=== PATIENT | female | born 1990 | race Caucasian/White ===

== ENCOUNTER → 2017-01-20 | Outpatient (CLI) | payer OTHER ==
--- NOTE | 2017-01-20 16:06 | US ---
EXAMINATION TYPE: US OB <= 14 wk fetus DATE OF EXAM: 01/20/2017 COMPARISON: NONE CLINICAL HISTORY: Z36 Confirm Dates. EXAM PERFORMED: Transabdominal (TA) EXAM MEASUREMENTS: GESTATIONAL AGE / DATING Physician Established: not established yet Dates by LMP: (12 weeks/6 days) EDC: 07/29/2017 Dates by First Scan: no previous here Dates by Current Scan for: (12 weeks/5 days) EDC: 07/30/2017 MATERNAL ANATOMY Uterus: 15.4 x 6.5 x 10.3 Right Ovary: 3.5 x 2.0 x 2.8cm Left Ovary: 3.1 x 2.9 x 1.7cm Post CDS / Adnexa: wnl Presence of free fluid: none seen GESTATION / SURVEY CRL: 6.3cm (12 weeks/5 days) MSD: wnl Yolk Sac: not seen Heart Rate: 163 bpm Rhythm: Normal IUP: Viable IUP Single live intrauterine gestation is seen as gestational sac and pole are identified. Yolk sac is not clearly seen. No free fluid is seen in pelvic cul-de-sac. Both ovaries are identified. No suspicious extraovarian adnexal masses are seen. IMPRESSION: Single live intrauterine gestation is confirmed, mean crown-rump length is 6.3 cm corresponding to 12 weeks 5 day old fetus.
[2017-01-20 16:28] LABS: CH 30.4; CHCM 34.2; HCT 36.2 % (34.0-46.0); HDW 2.29; HGB 12.6 gm/dL (11.4-16.0); MCH 31.1 pg (25.0-35.0); MCHC 34.8 g/dL (31.0-37.0); MCV 89.3 fL (80.0-100.0); Mean Platelet Volume 7.8; RBC 4.06 m/uL (3.80-5.40); RDW 13.1 % (11.5-15.5); WBC 9.6 k/uL (3.8-10.6)
[2017-01-20 16:33] LABS: Glucose 79 mg/dL (74-99); Non-African American GFR(MDRD) >60 (>60 ml/min/1.73 sqM)
[2017-01-20 17:05] LABS: Hepatitis B Surface Ag Index 0.05
== END | disposition home or self-care (01) ==
LOC: RADUSWWP 15:37
PROVIDERS: ATTEND Obstetrics & Gynecology
DX: Z36 Encounter for antenatal screening of mother (principal); Z3A.12 12 weeks gestation of pregnancy
CPT/HCPCS: 76801; 82565; 82947; 85027; 86762; 86780; 86850; 86900; 86901; 87340

== ENCOUNTER → 2017-02-18 | Outpatient (CLI) | payer OTHER ==
[2017-02-19 09:12] LABS: Alpha Fetoprotein 43.9 ng/mL; Alpha Fetoprotein (M.O.M) 1.09 (Negative); B-HCG (M.O.M.) 1.21; Gestational Age (days) 0; Human Chorionic Gonadotropin 37.3 IU/mL; Inhibin A (M.O.M.) 0.91; Interpretation SeeBelow; Maternal Age at EDD (Yrs) 24; Smoker No; Unconjugated Estriol (M.O.M.) 1.05
== END ==
LOC: LABWHC1 15:46
PROVIDERS: ATTEND Obstetrics & Gynecology
DX: Z34.92 Encounter for supervision of normal pregnancy, unspecified, second trimester (principal); Z3A.00 Weeks of gestation of pregnancy not specified
CPT/HCPCS: 36415; 82105; 82677; 84702; 86336

== ENCOUNTER → 2017-04-16 | Outpatient (CLI) | payer OTHER ==
[2017-04-16 15:55] LABS: CH 32.8; CHCM 33.8; HCT 34.1 % (34.0-46.0); HDW 2.51; HGB 11.3 gm/dL (11.4-16.0); MCH 32.2 pg (25.0-35.0); MCV 97.6 fL (80.0-100.0); Mean Platelet Volume 8.5; RBC 3.49 m/uL (3.80-5.40); RDW 14.1 % (11.5-15.5); WBC 9.9 k/uL (3.8-10.6)
== END | disposition home or self-care (01) ==
LOC: LABWHC1 14:31
PROVIDERS: ATTEND Obstetrics & Gynecology
DX: Z34.82 Encounter for supervision of other normal pregnancy, second trimester (principal); Z3A.00 Weeks of gestation of pregnancy not specified
CPT/HCPCS: 36415; 82950; 85027

== ENCOUNTER → 2017-04-25 | Outpatient (CLI) | payer OTHER ==
[2017-04-25 12:50] LABS: Glucose 3 Hour, Gest 101 mg/dL
== END | disposition home or self-care (01) ==
LOC: LABWHC1 07:56
PROVIDERS: ATTEND Obstetrics & Gynecology
DX: O99.810 Abnormal glucose complicating pregnancy (principal); Z3A.00 Weeks of gestation of pregnancy not specified
CPT/HCPCS: 36415; 82951; 82952

== ENCOUNTER 2017-07-23 06:00 | Inpatient (IN) | payer OTHER ==
--- NOTE | 2017-07-22 12:49 | P.HPOB ---
History of Present Illness H&P Date: 07/22/17 Chief Complaint: Induction of labor This is a 26 y.o. female, 2, para 1, with an estimated date of confinement of 07/29/2016, estimated gestational age of 39-1/7 weeks, presents to L&D for induction of labor. She has been feeling irregular contractions and pressure. Good movement. course has been uncomplicated. labs: Syphilis antibody-neg Random glucose-79 Hepatitis B surface antigen-neg Hemoglobin-12.6 Rubella-immune Blood type-O+ Antibody screen-neg Quad screen-neg 1 hr. GTT-141; 3 hr. GTT-wnl OB US-normal anatomy GBS-neg OB Hx: . Hx 1 vaginal delivery at term. Tub Chucker Hx: Hx GC, Chlamydia treated 2013. Review of Systems Constitutional: Denies chills, Denies fever Eyes: denies blurred vision, denies pain Ears, nose, mouth and throat: Denies headache, Denies sore throat Cardiovascular: Denies chest pain, Denies shortness of breath Respiratory: Denies cough Gastrointestinal: Reports abdominal pain (Irreg. ctxs), Denies diarrhea, Denies nausea, Denies vomiting Genitourinary: Reports pelvic pain, Reports Musculoskeletal: Reports low back pain Neurological: Denies numbness, Denies weakness Psychiatric: Denies anxiety, Denies depression Past Medical History Past Medical History: No Reported History Additional Past Medical History / Comment(s): Denies History of Any Multi-Drug Resistant Organisms: None Reported Past Surgical History: Appendectomy Past Anesthesia/Blood Transfusion Reactions: No Reported Reaction Past Psychological History: No Psychological Hx Reported Smoking Status: Never smoker Past Alcohol Use History: Occasional Past Drug Use History: None Reported - Past Family History Mother Family Medical History: Hypertension Medications and Allergies Home Medications Medication Instructions Recorded Confirmed Type Pnv No.95/Ferrous Fum/Folic AC 1 each PO 07/22/17 History [ Multivitamin Tablet] Allergies Allergy/AdvReac Type Severity Reaction Status Date / Time No Known Allergies Allergy Verified 02/19/16 19:46 Exam Osteopathic Statement: *. No significant issues noted on an osteopathic structural exam other than those noted in the History and Physical/Consult. HEENT: within normal limits Heart: regular rate and rhythm Lungs: clear to auscultation bilaterally Abdomen: soft, Cervix: Cx 2 cm/70%/-1 heart tones: 140's by doppler Extremities: neg. Shar's Assessment and Plan (1) 39 weeks gestation of Status: Acute Code(s): Z3A.39 - 39 WEEKS GESTATION OF SNOMED Code( s): 10508837 Plan: Proceed with oxytocin induction of labor. Expectant management. Epidural if desired.
[2017-07-23] MEDS ORDERED: OXYTOCIN 20 UNITS/1000 ML NS 1,000 ML IV SCH ×2 (06:28→14:40)
[2017-07-23] MEDS ORDERED: LIDOCAINE 1% (PF) 10 MG/ML (30 ML SDV) SQ PRN (06:28)
[2017-07-23] MEDS ORDERED: CARBOPROST TROMETHAMINE 250 MCG/ML 1 ML AMP IM PRN (06:28)
[2017-07-23] MEDS ORDERED: OXYTOCIN 10 UNIT/ML 1 ML VIAL IM PRN (06:28)
[2017-07-23] MEDS ORDERED: TERBUTALINE 1 MG/ML VIAL SQ PRN (06:28)
[2017-07-23] MEDS ORDERED: METHYLERGONOVINE 0.2 MG/ML 1 ML AMP IM PRN (06:28)
[2017-07-23] MEDS ORDERED: LIDOCAINE 1% 20 ML VIAL (10MG/ML) FOR IV START INTRADERMA PRN (06:28)
[2017-07-23 06:43] VITALS: BMI 22.8
[2017-07-23] MEDS: LACTATED RINGERS 1,000 ML IV SCH ×2 (06:49→12:57)
[2017-07-23 06:54] LABS: Basophils % (A) 0 %; Eosinophils # (A) 0.1 k/uL (0-0.7); Eosinophils % (A) 1 %; HCT 36.6 % (34.0-46.0); HGB 11.6 gm/dL (11.4-16.0); Lymphocytes # (A) 1.9 k/uL (1.0-4.8); Lymphocytes % (A) 24 %; MCH 29.9 pg (25.0-35.0); MCHC 31.8 g/dL (31.0-37.0); Mean Platelet Volume 8.6; Monocytes # (A) 0.3 k/uL (0-1.0); Monocytes % (A) 4 %; Neutrophils # (A) 5.4 k/uL (1.3-7.7); Neutrophils % (A) 69 %; Platelet Count 223 k/uL (150-450); RBC 3.89 m/uL (3.80-5.40); RDW 14.7 % (11.5-15.5); WBC 7.8 k/uL (3.8-10.6)
[2017-07-23] MEDS ORDERED: BUTORPHANOL 1 MG/ML 1 ML VIAL IV PRN (10:41)
[2017-07-23] MEDS ORDERED: fentaNYL (PF) 50 MCG/ML 5 ML AMP ONE (12:14)
[2017-07-23] MEDS ORDERED: BUPIVACAINE (PF) 0.25% 30 ML VIAL ONE (12:14)
[2017-07-23] MEDS ORDERED: SODIUM CHLORIDE 0.9% 100 ML BAG ONE (12:14)
[2017-07-23] MEDS ORDERED: BUPIVACAINE (PF) 0.25% 25 ML, fentaNYL (PF) 200 MCG in SODIUM CHLORIDE 0.9% 71 ML EPIDURAL ONE (12:27)
[2017-07-23] MEDS ORDERED: diphenhydrAMINE 25 MG CAP PO PRN (14:40)
[2017-07-23] MEDS ORDERED: WITCH HAZEL 1 EACH MED..PAD TOPICAL PRN (14:40)
[2017-07-23] MEDS ORDERED: HYDROCORTISONE 2.5% RECTAL CREAM 30 GM TUBE RECTAL PRN (14:40)
[2017-07-23] MEDS ORDERED: BENZOCAINE/MENTHOL SPRAY 1 GM/SPRAY AEROSOL TOPICAL PRN (14:40)
[2017-07-23] MEDS ORDERED: SIMETHICONE 80 MG CHEWABLE PO PRN (14:40)
[2017-07-23] MEDS ORDERED: ACETAMINOPHEN TAB 325 MG TAB PO PRN (14:40)
[2017-07-23] MEDS ORDERED: diphenhydrAMINE 50 MG/ML 1 ML VIAL IVP PRN ×2 (14:40)
[2017-07-23] MEDS ORDERED: LANOLIN CREAM 5 GM TUBE TOPICAL PRN (14:40)
[2017-07-23] MEDS ORDERED: diphenhydrAMINE 50 MG CAP PO PRN (14:40)
[2017-07-23] MEDS ORDERED: ZOLPIDEM 5 MG TAB PO PRN (14:40)
[2017-07-23] MEDS ORDERED: IBUPROFEN 600 MG TAB PO PRN (14:40)
--- NOTE | 2017-07-23 17:29 | P.PROBDLV ---
Vaginal Delivery Note - . Vaginal Delivery Note: The patient progressed to complete dilation after oxytocin induction of labor and artificial rupture membranes with clear fluid noted. She did receive epidural anesthesia. After reaching complete dilation she began pushing. Infant's head came to a crown and then delivered across the perineum and a right occiput anterior position. Nose and mouth were bulb suctioned at the perineum and then cord 2 was reduced around the infant's head. With one further push, the infant's body delivered and the was placed on mother's abdomen. Cord was clamped and cut and was taken to warmer for evaluation. A viable female infant was noted with scores of 9 at 1 minute and 9 at 5 minutes and infant weight was noted to be 6 lbs. 7 oz. Placenta delivered shortly thereafter, intact, with a three-vessel cord. Uterus contracted well after oxytocin was given and uterine massage was carried out. Inspection of the perineum revealed no lacerations. She did have a couple small abrasions periurethrally. Estimated blood loss is approximately 100 mL's. Both mother and infant are in stable condition.
[2017-07-23] MEDS ORDERED: DIPH,PERTUS(ACELL)TETVAC-LF 0.5 ML VIAL IM ONE (17:33)
[2017-07-23] MEDS: SENNOSIDES-DOCUSATE SODIUM 1 EACH TAB PO SCH (21:35)
--- NOTE | 2017-07-24 07:37 | P.DS ---
Providers Date of admission: 07/23/17 06:17 Expected date of discharge: 07/24/17 Attending physician: Dorcas Randhawa Primary care physician: Galileo Handy - Discharge Diagnosis(es) (1) 39 weeks gestation of Current Visit: Yes Status: Acute Hospital Course: This is a 26-year-old female 2 para 1 who presented for induction of labor. She underwent oxytocin induction of labor and delivered vaginally a viable female on 07/23/2017. Her course has been uncomplicated. She is breast-feeding. Lochia is decreasing. Pain is well- controlled with ibuprofen. Vital signs are stable. Abdomen is soft with fundus firm and nontender. Extremities show negative Homans. Impression is status post vaginal delivery day #1. Plan is to discharge home today. Routine instructions are given. She will be given a prescription for ibuprofen and a breast pump. She is advised to follow-up in the office in 6 weeks for a check. She is advised to call the office if she has any further questions or concerns prior to her appointment time. Procedures: Oxytocin induction of labor Spontaneous vaginal delivery of a viable female on 07/23/2017 Patient Condition at Discharge: Stable Plan - Discharge Summary New Discharge Prescriptions: No Action Pnv No.95/Ferrous Fum/Folic AC [ Multivitamin Tablet] 1 each PO Discharge Medication List Pnv No.95/Ferrous Fum/Folic AC [ Multivitamin Tablet] 1 each PO [History] Follow up Appointment(s)/Referral(s): Dorcas Randhawa DO [Doctor of Osteopathic Medicine] - 6 Weeks Activity/Diet/Wound Care/Special Instructions: Instructions 1. Do not begin any exercise program for 3 weeks. 2. Do not resume sexual relations for 3 weeks or longer if uncomfortable. 3. You may take tub baths or showers at any time. 4. You may use tampons if desired after 3 weeks. 5. Keep the area of episiotomy (stitches) clean and dry. 6. If you are not nursing, wear a good fitting, supportive bra during the day and limit fluid intake for at least 1 week to prevent breast engorgement. 7. Call the office, [phone], within the next week to make appointment for your 6 week checkup if it has not already been made. 8. Report any of the following occurrences to the doctor promptly: a. Heavy, excessive bleeding b. Chills, fever c. Burning or frequency of urination d. Pain or redness and breasts if nursing e. Increasing pain or swelling in episiotomy (stitches). In addition to the above instructions, the following additional should be followed: 1. No heavy lifting or straining (exercising) until after 6 week checkup. 2. Keep abdominal incision clean and dry: You may wear a dressing if more comfortable. 3. Make office appointment for 10 days after going home or as instructed by her doctor. Discharge Disposition: HOME SELF-CARE
[2017-07-24 08:39] LABS: Basophils % (A) 0 %; Eosinophils # (A) 0.1 k/uL (0-0.7); Eosinophils % (A) 1 %; HCT 33.8 % (34.0-46.0); HGB 11.1 gm/dL (11.4-16.0); Hypochromasia Slight; Lymphocytes # (A) 1.8 k/uL (1.0-4.8); Lymphocytes % (A) 19 %; MCH 30.3 pg (25.0-35.0); MCHC 32.7 g/dL (31.0-37.0); MCV 92.8 fL (80.0-100.0); Mean Platelet Volume 8.6; Monocytes # (A) 0.3 k/uL (0-1.0); Monocytes % (A) 4 %; Neutrophils # (A) 7.2 k/uL (1.3-7.7); Neutrophils % (A) 76 %; Platelet Count 191 k/uL (150-450); RBC 3.65 m/uL (3.80-5.40); RDW 14.1 % (11.5-15.5); WBC 9.5 k/uL (3.8-10.6)
[2017-07-24 15:19] VITALS: BP 112/69; PULSE 55; RESP 18; TEMP 98
[2017-07-24] MEDS: SENNOSIDES-DOCUSATE SODIUM 1 EACH TAB PO SCH (15:20)
== END 2017-07-24 17:24 | disposition home or self-care (01) | DRG 775 ==
LOC: 4FBP 06:17
PROVIDERS: ADMIT Obstetrics & Gynecology; ATTEND Obstetrics & Gynecology
PROC: 10E0XZZ Delivery of Products of Conception, External Approach (ICD-10-PCS; principal; 2017-07-23)
PROC: 3E033VJ Introduction of Other Hormone into Peripheral Vein, Percutaneous Approach (ICD-10-PCS; 2017-07-23)
PROC: 10907ZC Drainage of Amniotic Fluid, Therapeutic from Products of Conception, Via Natural or Artificial Opening (ICD-10-PCS; 2017-07-23)
PROC: 00HU33Z Insertion of Infusion Device into Spinal Canal, Percutaneous Approach (ICD-10-PCS; 2017-07-23)
PROC: 3E0R3BZ Introduction of Anesthetic Agent into Spinal Canal, Percutaneous Approach (ICD-10-PCS; 2017-07-23)
PROC: 3E0234Z Introduction of Serum, Toxoid and Vaccine into Muscle, Percutaneous Approach (ICD-10-PCS; 2017-07-23)
DX: O71.82 Other specified trauma to perineum and vulva (principal); Z23 Encounter for immunization; Z37.0 Single live birth; Z3A.39 39 weeks gestation of pregnancy; Z79.899 Other long term (current) drug therapy
CPT/HCPCS: 85025; 88307; 90471; 90715

== ENCOUNTER 2018-02-21 00:34 | Emergency (ER) | payer OTHER ==
[2018-02-21 00:40] VITALS: TEMP 98.1
[2018-02-21] MEDS ORDERED: AMOXICILLIN 875 MG TAB PO STA (01:10)
[2018-02-21] MEDS ORDERED: KETOROLAC 30 MG/ML 1 ML VIAL IM STA (01:12)
[2018-02-21] MEDS ORDERED: ACET/COD 300 MG/30 MG STARTER PACK 6 TAB BTL PO STA (01:13)
--- NOTE | 2018-02-21 01:14 | ED ---
ENT HPI - General Chief complaint: ENT Stated complaint: Left sided facial pain Time Seen by Provider: 02/21/18 00:55 Source: patient Mode of arrival: ambulatory Limitations: no limitations - History of Present Illness Initial comments: 27-year-old female patient presents to the emergency department today for evaluation of left ear pain. Patient states that throughout the day today she has felt like her left ear has been "plugged". Patient states around 7 PM she started to have pain to the left ear. States that the pain has gradually worsened and is now severe and radiating into her face. She denies any dental pain. Denies any fevers or chills. States that she has had some nasal congestion over the last couple of days. States that she did have any infection last year which resulted in a tympanic perforation. She denies any current drainage from the ear. Denies any recent swimming. Patient denies any recent rash, shortness breath, chest pain, abdominal pain, nausea, vomiting, diarrhea, constipation, back pain, numbness, tingling, hematuria, dysuria, urinary urgency, urinary frequency, headache, visual changes, or any other complaints. - Related Data Previous Rx's Medication Instructions Recorded Amoxicillin 875 mg PO Q12HR #20 tablet 02/21/18 Ibuprofen [Motrin] 600 mg PO Q8HR PRN #30 tab 02/21/18 Allergies Allergy/AdvReac Type Severity Reaction Status Date / Time No Known Allergies Allergy Verified 02/21/18 00:40 Review of Systems ROS Statement: Those systems with pertinent positive or pertinent negative responses have been documented in the HPI. ROS Other: All systems not noted in ROS Statement are negative. Past Medical History Past Medical History: No Reported History Additional Past Medical History / Comment(s): Denies History of Any Multi-Drug Resistant Organisms: None Reported Past Surgical History: Appendectomy Past Anesthesia/Blood Transfusion Reactions: No Reported Reaction Past Psychological History: No Psychological Hx Reported Smoking Status: Never smoker Past Alcohol Use History: Occasional Past Drug Use History: None Reported - Past Family History Mother Family Medical History: Hypertension General Exam Limitations: no limitations General appearance: alert, in no apparent distress, other (This is a well- developed, well-nourished adult female patient in no acute distress. Vital signs upon presentation are temperature 98.1F, pulse 57, respirations 20, blood pressure 156/86, pulse ox 100% on room air.) Eye exam: Present: normal appearance, PERRL, EOMI. Absent: scleral icterus, conjunctival injection, periorbital swelling ENT exam: Present: normal exam, normal oropharynx, mucous membranes moist, normal external ear exam, other (No canal erythema, swelling, or drainage. No mastoid tenderness.). Absent: TM's normal bilaterally ((Tympanic membrane is bulging, erythematous, and dull, appears to be an effusion. ) Neck exam: Present: normal inspection. Absent: tenderness, meningismus, lymphadenopathy Respiratory exam: Present: normal lung sounds bilaterally. Absent: respiratory distress, wheezes, rales, rhonchi, stridor Cardiovascular Exam: Present: regular rate, normal rhythm, normal heart sounds. Absent: systolic murmur, diastolic murmur, rubs, gallop, clicks Neurological exam: Present: alert, oriented X3, CN II-XII intact Psychiatric exam: Present: normal affect, normal mood Skin exam: Present: warm, dry, intact, normal color. Absent: rash Course Vital Signs 02/21/18 00:38 Temperature 98.1 F Pulse Rate 57 L Respiratory 20 Rate Blood Pressure 136/86 O2 Sat by Pulse 100 Oximetry Medical Decision Making - Medical Decision Making 27-year-old female patient presents the emergency department today for complaints of left ear pain. Physical examination did reveal a bulging, erythematous, dull left tympanic membrane. No canal erythema or evidence of otitis externa. We'll treat patient for acute otitis media with amoxicillin. She'll be given ibuprofen for pain control. She is instructed to apply warm compresses. She is instructed to follow-up with her primary care physician for recheck in 1-2 days. Return parameters were discussed in detail. She verbalizes understanding and agrees with this plan. Disposition Clinical Impression: Left otitis media Disposition: HOME SELF-CARE Condition: Good Instructions: Otitis Media (ED), Warm Compress or Soak (ED) Additional Instructions: Complete antibiotic prescription and full. Take medications as directed. Follow-up through primary care physician for recheck in 1-2 days. Return here immediately for any new, worsening, or concerning symptoms. Prescriptions: Amoxicillin 875 mg PO Q12HR #20 tablet Ibuprofen [Motrin] 600 mg PO Q8HR PRN #30 tab PRN Reason: Pain Is patient prescribed a controlled substance at d/c from ED?: No Referrals: Galileo Handy MD [Primary Care Provider] - 1-2 days Time of Disposition: 01:14
[2018-02-21 01:53] VITALS: BP 107/66; PULSE 65; RESP 16
== END 2018-02-21 01:57 | disposition home or self-care (01) ==
LOC: EC 00:34
DX: H66.92 Otitis media, unspecified, left ear (principal); R09.81 Nasal congestion
CPT/HCPCS: 99283; 96372; J1885

== ENCOUNTER 2019-04-19 12:14 | Emergency (ER) | payer OTHER ==
[2019-04-19 12:28] VITALS: TEMP 98.1
[2019-04-19] MEDS ORDERED: SODIUM CHLORIDE 0.9% 1,000 ML IV ONE (12:56)
[2019-04-19 13:43] LABS: Basophils % (A) 0 %; Eosinophils # (A) 0.1 k/uL (0-0.7); Eosinophils % (A) 1 %; HCT 38.9 % (34.0-46.0); HGB 12.9 gm/dL (11.4-16.0); Lymphocytes # (A) 1.5 k/uL (1.0-4.8); Lymphocytes % (A) 18 %; MCHC 33.1 g/dL (31.0-37.0); MCV 93.9 fL (80.0-100.0); Mean Platelet Volume 7.7; Monocytes # (A) 0.4 k/uL (0-1.0); Monocytes % (A) 4 %; Neutrophils % (A) 75 %; Platelet Count 219 k/uL (150-450); RBC 4.15 m/uL (3.80-5.40); RDW 12.6 % (11.5-15.5)
[2019-04-19 13:53] LABS: ALT 11 U/L (9-52); AST 19 U/L (14-36); African American GFR (CKD) >90 (>60 ml/min/1.73 sqM); Albumin 4.6 g/dL (3.5-5.0); Alkaline Phosphatase 40 U/L (38-126); Anion Gap 11 mmol/L; Blood Urea Nitrogen 10 mg/dL (7-17); Calcium 9.3 mg/dL (8.4-10.2); Carbon Dioxide 24 mmol/L (22-30); Chloride 104 mmol/L (98-107); Glucose 81 mg/dL (74-99); Potassium 3.9 mmol/L (3.5-5.1); Sodium 139 mmol/L (137-145); Total Bilirubin 0.4 mg/dL (0.2-1.3); Total Protein 7.7 g/dL (6.3-8.2)
[2019-04-19 14:06] LABS: Appearance,Urine Clear (Clear); Bacteria,Urine Occasional /hpf; Bilirubin,Urine Negative (Negative); Blood,Urine Large (Negative); Color,Urine Light Yellow; Glucose,Urine (UA) Negative (Negative); Ketones,Urine Negative (Negative); Leukocyte Esterase,Urine Negative (Negative); Mucus,Urine Rare /hpf; Nitrite,Urine Negative (Negative); Protein,Urine Negative (Negative); RBC,Urine >182 /hpf (0-5); Specific Gravity,Urine 1.009 (1.001-1.035); Squamous Epithelial Cell,Urine 1 /hpf (0-4); Urobilinogen,Urine <2.0 mg/dL (<2.0); WBC,Urine 1 /hpf (0-5)
--- NOTE | 2019-04-19 14:45 | US ---
EXAMINATION TYPE: Transabdominal DATE OF EXAM: 04/19/2019 2:28 PM COMPARISON: NONE CLINICAL HISTORY: bleeding, 9 wks. Bleeding x 1 day, 3, para 2 EXAM PERFORMED: Transabdominal (TA) EXAM MEASUREMENTS: GESTATIONAL AGE / DATING Physician Established: (9 weeks/4 days) EDC: 11/18/2019 Dates by LMP: (9 weeks/4 days) EDC: 11/18/2019 Dates by First Scan: This is 1st scan Dates by Current Scan for: (9 weeks/4 days) EDC: 11/18/2019 MATERNAL ANATOMY Uterus: 10.4 x 6.9 x 7.8cm, anteverted Right Ovary: 3.1 x 1.2 x 1.5cm Left Ovary: 3.1 x 1.8 x 1.9cm Post CDS / Adnexa: wnl Presence of free fluid: no Presence of corpus luteal cyst: not seen Presence of subchorionic bleed: yes 6.9 x 1.8 x 6.1cm GESTATION / SURVEY CRL: 2.8cm (9 weeks/4 days) Yolk Sac (normal less than 6mm): 4.7mm Heart Rate: 162 bpm Rhythm: Normal IUP: Viable IUP Date of LMP: 02/11/2019 Beta HcG (if available): Not available at time of exam Live single IUP measuring 9 weeks 4 days with a heart rate of 162bpm and an estimated delivery date o f 11/18/2019, 6.9cm subchorionic bleed. IMPRESSION: 1. Single live intrauterine with a calculated sonographic age of 9 weeks and 4 days and est imated date of delivery of 11/18/2019, concordant with menstrual age. Current heart rate of 162 bpm. 2. There appears to be interval development of a large subchorionic hemorrhage that occupies nearly 5 0% of the gestational sac diameter and measures up to 6.9 cm in longitudinal dimension. This appears more hypoechoic than the adjacent myometrium and persists during the examination therefore unlikely t o relate to myometrial contraction. [employer] consultation should be considered given the size.
--- NOTE | 2019-04-19 14:51 | ED ---
General Adult HPI - General Chief complaint: Vaginal Bleeding Stated complaint: 9 WEEKS AND BLEEDING Time Seen by Provider: 04/19/19 12:56 Source: patient, RN notes reviewed Mode of arrival: ambulatory Limitations: no limitations - History of Present Illness Initial comments: 28-year-old female presents to the emergency department for a chief complaint of vaginal bleeding. Patient is a . States the vaginal bleeding started 2 hours ago. Patient is currently 9 weeks . States she follows with Dr. Randhawa but has not yet had an ultrasound. States this is scheduled in 3 days. Admits to mild cramping along with the bleeding. Denies fevers or chills. Patient has no other complaints at this time including shortness of breath, chest pain, nausea or vomiting, headache, or visual changes. - Related Data Home Medications Medication Instructions Recorded Confirmed Pnv,Calcium 72/Iron/Folic Acid 1 tab PO HS 04/19/19 04/19/19 [ Plus Tablet] Allergies Allergy/AdvReac Type Severity Reaction Status Date / Time No Known Allergies Allergy Verified 04/19/19 13:11 Review of Systems ROS Statement: Those systems with pertinent positive or pertinent negative responses have been documented in the HPI. ROS Other: All systems not noted in ROS Statement are negative. Past Medical History Past Medical History: No Reported History Additional Past Medical History / Comment(s): Denies History of Any Multi-Drug Resistant Organisms: None Reported Past Surgical History: Appendectomy Past Anesthesia/Blood Transfusion Reactions: No Reported Reaction Past Psychological History: No Psychological Hx Reported Smoking Status: Never smoker Past Alcohol Use History: Occasional Past Drug Use History: None Reported - Past Family History Mother Family Medical History: Hypertension General Exam Limitations: no limitations General appearance: alert, in no apparent distress Head exam: Present: atraumatic, normocephalic, normal inspection Eye exam: Present: normal appearance, PERRL, EOMI. Absent: scleral icterus, conjunctival injection, periorbital swelling ENT exam: Present: normal exam, mucous membranes moist Neck exam: Present: normal inspection, full ROM. Absent: tenderness, meningismus, lymphadenopathy Respiratory exam: Present: normal lung sounds bilaterally. Absent: respiratory distress, wheezes, rales, rhonchi, stridor Cardiovascular Exam: Present: regular rate, normal rhythm, normal heart sounds. Absent: systolic murmur, diastolic murmur, rubs, gallop, clicks GI/Abdominal exam: Present: soft, normal bowel sounds. Absent: distended, tenderness, guarding, rebound, rigid External exam: Present: normal external exam. Absent: erythema, swelling, lesions, lacerations, ecchymosis Speculum exam: Present: vaginal bleeding (Minimal amount of vaginal bleeding). Absent: normal speculum exam, erythema, vaginal discharge, cervical discharge, foreign body, tissue, laceration By manual exam: Present: normal by manual exam. Absent: cervical motion tenderness, adnexal tenderness, adnexal mass, uterine enlargement, uterine tenderness Course Vital Signs 04/19/19 12:25 Temperature 98.1 F Pulse Rate 84 Respiratory 20 Rate Blood Pressure 136/70 O2 Sat by Pulse 99 Oximetry Medical Decision Making - Medical Decision Making Vitals are stable. Exam revealed minimal bleeding, no overt hemorrhage. CBC was obtained to monitor hemoglobin which is normal at 12.9. CMP unremarkable. Urinalysis does show greater than 182 red blood cells. ultrasound showed a single live intrauterine with a current heart rate of 162. There is a large subchorionic hemorrhage which occupies nearly 50% of the gestational sac. Dr. Jo spoke with on-call physician for Dr. Randhawa. They are aware of this. Patient will follow up with them at her scheduled appointment on . She'll return if she has any worsening symptoms. - Lab Data Result diagrams: 04/19/19 13:25 04/19/19 13:25 Lab Results 04/19/19 04/19/19 04/19/19 Range/Units 13:25 13:25 13:25 WBC 8.0 (3.8-10.6) k/uL RBC 4.15 (3.80-5.40) m/uL Hgb 12.9 (11.4-16.0) gm/dL Hct 38.9 (34.0-46.0) % MCV 93.9 (80.0-100.0) fL MCH 31.0 (25.0-35.0) pg MCHC 33.1 (31.0-37.0) g/dL RDW 12.6 (11.5-15.5) % Plt Count 219 (150-450) k/uL Neutrophils % 75 % Lymphocytes % 18 % Monocytes % 4 % Eosinophils % 1 % Basophils % 0 % Neutrophils # 6.0 (1.3-7.7) k/uL Lymphocytes # 1.5 (1.0-4.8) k/uL Monocytes # 0.4 (0-1.0) k/uL Eosinophils # 0.1 (0-0.7) k/uL Basophils # 0.0 (0-0.2) k/uL Sodium 139 (137-145) mmol/L Potassium 3.9 (3.5-5.1) mmol/L Chloride 104 (98-107) mmol/L Carbon Dioxide 24 (22-30) mmol/L Anion Gap 11 mmol/L BUN 10 (7-17) mg/dL Creatinine 0.58 (0.52-1.04) mg/dL Est GFR (CKD-EPI)AfAm >90 (>60 ml/min/1.73 sqM) Est GFR (CKD-EPI)NonAf >90 (>60 ml/min/1.73 sqM) Glucose 81 (74-99) mg/dL Calcium 9.3 (8.4-10.2) mg/dL Total Bilirubin 0.4 (0.2-1.3) mg/dL AST 19 (14-36) U/L ALT 11 (9-52) U/L Alkaline Phosphatase 40 (38-126) U/L Total Protein 7.7 (6.3-8.2) g/dL Albumin 4.6 (3.5-5.0) g/dL Urine Color Urine Appearance (Clear) Urine pH (5.0-8.0) Ur Specific [place] (1.001-1.035) Urine Protein (Negative) Urine Glucose (UA) (Negative) Urine Ketones (Negative) Urine Blood (Negative) Urine Nitrite (Negative) Urine Bilirubin (Negative) Urine Urobilinogen (<2.0) mg/dL Ur Leukocyte Esterase (Negative) Urine RBC (0-5) /hpf Urine WBC (0-5) /hpf Ur Squamous Epith Cells (0-4) /hpf Urine Bacteria (None) /hpf Urine Mucus (None) /hpf Blood Type O Positive Blood Type Recheck O Pos Bld Type Recheck Status No 04/19/19 Range/Units 13:25 WBC (3.8-10.6) k/uL RBC (3.80-5.40) m/uL Hgb (11.4-16.0) gm/dL Hct (34.0-46.0) % MCV (80.0-100.0) fL MCH (25.0-35.0) pg MCHC (31.0-37.0) g/dL RDW (11.5-15.5) % Plt Count (150-450) k/uL Neutrophils % % Lymphocytes % % Monocytes % % Eosinophils % % Basophils % % Neutrophils # (1.3-7.7) k/uL Lymphocytes # (1.0-4.8) k/uL Monocytes # (0-1.0) k/uL Eosinophils # (0-0.7) k/uL Basophils # (0-0.2) k/uL Sodium (137-145) mmol/L Potassium (3.5-5.1) mmol/L Chloride (98-107) mmol/L Carbon Dioxide (22-30) mmol/L Anion Gap mmol/L BUN (7-17) mg/dL Creatinine (0.52-1.04) mg/dL Est GFR (CKD-EPI)AfAm (>60 ml/min/1.73 sqM) Est GFR (CKD-EPI)NonAf (>60 ml/min/1.73 sqM) Glucose (74-99) mg/dL Calcium (8.4-10.2) mg/dL Total Bilirubin (0.2-1.3) mg/dL AST (14-36) U/L ALT (9-52) U/L Alkaline Phosphatase (38-126) U/L Total Protein (6.3-8.2) g/dL Albumin (3.5-5.0) g/dL Urine Color Light Yellow Urine Appearance Clear (Clear) Urine pH 6.0 (5.0-8.0) Ur Specific [place] 1.009 (1.001-1.035) Urine Protein Negative (Negative) Urine Glucose (UA) Negative (Negative) Urine Ketones Negative (Negative) Urine Blood Large H (Negative) Urine Nitrite Negative (Negative) Urine Bilirubin Negative (Negative) Urine Urobilinogen <2.0 (<2.0) mg/dL Ur Leukocyte Esterase Negative (Negative) Urine RBC >182 H (0-5) /hpf Urine WBC 1 (0-5) /hpf Ur Squamous Epith Cells 1 (0-4) /hpf Urine Bacteria Occasional H (None) /hpf Urine Mucus Rare H (None) /hpf Blood Type Blood Type Recheck Bld Type Recheck Status Disposition Clinical Impression: Subchorionic hemorrhage, Intrauterine Disposition: HOME SELF-CARE Condition: Good Instructions (If sedation given, give patient instructions): Subchorionic Hemorrhage (ED) Additional Instructions: Please follow up with OBGYN in 1-2 days. Return to the emergency department if you have any worsening symptoms. Is patient prescribed a controlled substance at d/c from ED?: No Referrals: Galileo Handy MD [Primary Care Provider] - 1-2 days Dorcas Randhawa DO [Doctor of Osteopathic Medicine] - 1-2 days Time of Disposition: 15:29
[2019-04-19 15:49] VITALS: BP 108/68; PULSE 70; RESP 16
[2019-04-20 15:00] LABS: N. gonorrhoeae,PCR Negative (Neg,Equiv); Neisseria Source Vagina
[2019-04-20 15:02] LABS: C. trachomatis,PCR Negative (Neg,Equiv); Chlamydia trachomatis Source Vagina
== END 2019-04-19 15:47 | disposition home or self-care (01) ==
LOC: EC 12:14
DX: O20.9 Hemorrhage in early pregnancy, unspecified (principal); Z3A.09 9 weeks gestation of pregnancy
CPT/HCPCS: 36415; 76801; 80053; 81001; 84702; 85025; 86900; 86901; 87491; 87591; 87808; 96360; 96361; 99284

== ENCOUNTER → 2019-04-29 | Outpatient (CLI) | payer OTHER | END | disposition home or self-care (01) | LOC: LABWHC1 16:41 | PROVIDERS: ATTEND Obstetrics & Gynecology | DX: Z53.9 Procedure and treatment not carried out, unspecified reason (principal) ==

== ENCOUNTER → 2019-04-29 | Outpatient (CLI) | payer OTHER ==
[2019-04-29 17:39] LABS: HCT 36.5 % (34.0-46.0); HGB 12.3 gm/dL (11.4-16.0); MCH 30.9 pg (25.0-35.0); MCHC 33.8 g/dL (31.0-37.0); MCV 91.4 fL (80.0-100.0); Mean Platelet Volume 6.6; Platelet Count 219 k/uL (150-450); RBC 3.99 m/uL (3.80-5.40); RDW 12.6 % (11.5-15.5); WBC 6.4 k/uL (3.8-10.6)
[2019-04-29 17:44] LABS: African American GFR (CKD) >90 (>60 ml/min/1.73 sqM); Glucose 89 mg/dL (74-99)
[2019-04-29 23:59] LABS: Hepatitis B Surface Antigen Non-Reactive (Non-Reactive)
[2019-04-30 00:38] LABS: HIV 1 AB Non-Reactive (Non-Reactive); HIV 2 AB Non-Reactive (Non-Reactive); HIV AB P24 Non-Reactive (Non-Reactive); HIV P24 AG Non-Reactive (Non-Reactive)
--- NOTE | 2019-04-30 07:33 | US ---
EXAMINATION TYPE: Transabdominal DATE OF EXAM: 04/29/2019 4:42 PM COMPARISON: NONE CLINICAL HISTORY: Z36 confirm. EXAM PERFORMED: Transvaginal (TV) EXAM MEASUREMENTS: GESTATIONAL AGE / DATING Physician Established: not yet established Dates by LMP: (11 weeks/ 0 days) EDC: 11/18/19 Dates by First Scan:(11 weeks/0 days) EDC: 11/18/19 Dates by Current Scan for: (11 weeks/1 days) EDC: 11/17/19 MATERNAL ANATOMY Uterus: 11.1 x 9.8 x 4.1cm Right Ovary: 2.3 x 0.9 x 1.0cm Left Ovary: 2.4 x 1.1 x 1.0cm Post CDS / Adnexa: wnl Presence of free fluid: no Presence of corpus luteal cyst: no Presence of subchorionic bleed: Possible 5.6 x 1.5 x 7.7cm GESTATION / SURVEY CRL: 4.3 (11 weeks/1 days) Yolk Sac (normal less than 6mm): 5mm Heart Rate: 154 bpm Rhythm: Normal IUP: Live IUP Date of LMP: 02/11/19 Beta HcG (if available): Not available at this time There is a new anechoic fluid collection that could represent either resolution of a subchorionic hem orrhage however there is a thick and like structure measuring up to 7 mm in thickness within the amni otic cavity concerning for amnionic band or synechiae. IMPRESSION: 1. New thick bandlike structure in the amniotic cavity concerning for amnionic band or synechiae alth ough on the prior exam of 04/19/2019 this was not present and in the location of the now anechoic flui d collection there was a hypoechoic new large subchorionic hemorrhage therefore alternatively this co uld represent an evolving subchorionic hemorrhage. High risk evaluation and repeat ultrasound with ma ternal- medicine is highly recommended. 2. Single live intrauterine with a sonographic age of 11 weeks and 1 day and estimated date of delivery of 11/17/2019. A [place] level critical message alert has been initiated for Dorcas Randhawa DO via the [employer] Critical Results System on 04/30/2019 7:30 AM. This message alert has been sent to Dorcas Randhawa DO via the preferences provided by the clinician for the receipt of Radiology Critical Findings. [facility] age ID [id number].
== END | disposition home or self-care (01) ==
LOC: RADUSWWP 16:13
PROVIDERS: ATTEND Obstetrics & Gynecology
DX: Z36.89 Encounter for other specified antenatal screening (principal)
CPT/HCPCS: 76801; 82565; 82947; 85027; 86762; 86780; 86850; 86900; 86901; 87340; 87390

== ENCOUNTER → 2019-07-01 | Outpatient (CLI) | payer OTHER ==
[2019-07-02 09:36] LABS: Alpha Fetoprotein 56.2 ng/mL; Alpha Fetoprotein (M.O.M) 0.87; B-HCG (M.O.M.) 0.66; Gestational Age (days) 0; Human Chorionic Gonadotropin 13.7 IU/mL; Inhibin A (M.O.M.) 0.73; Interpretation SeeBelow; Maternal Age at EDD (Yrs) 27; Smoker No; Unconjugated Estriol (M.O.M.) 1.18
== END | disposition home or self-care (01) ==
LOC: LABWHC1 10:35
PROVIDERS: ATTEND Obstetrics & Gynecology
DX: Z34.82 Encounter for supervision of other normal pregnancy, second trimester (principal)
CPT/HCPCS: 36415; 82105; 82677; 84702; 86336

== ENCOUNTER 2019-07-12 16:49 | Observation (INO) | payer OTHER ==
[2019-07-12] MEDS ORDERED: LACTATED RINGERS 1,000 ML IV ONE (17:15)
[2019-07-12 17:56] LABS: Basophils % (A) 0 %; Eosinophils # (A) 0.1 k/uL (0-0.7); Eosinophils % (A) 1 %; HCT 36.5 % (34.0-46.0); HGB 12.3 gm/dL (11.4-16.0); Lymphocytes # (A) 1.5 k/uL (1.0-4.8); Lymphocytes % (A) 18 %; MCH 31.7 pg (25.0-35.0); MCHC 33.8 g/dL (31.0-37.0); MCV 93.7 fL (80.0-100.0); Mean Platelet Volume 8.3; Monocytes # (A) 0.3 k/uL (0-1.0); Monocytes % (A) 4 %; Neutrophils # (A) 6.2 k/uL (1.3-7.7); Neutrophils % (A) 75 %; Platelet Count 214 k/uL (150-450); RBC 3.89 m/uL (3.80-5.40); RDW 13.1 % (11.5-15.5); WBC 8.3 k/uL (3.8-10.6)
[2019-07-12 18:08] LABS: Amorphous Sediment,Urine Rare /hpf; Appearance,Urine Cloudy (Clear); Bacteria,Urine Occasional /hpf; Bilirubin,Urine Negative (Negative); Blood,Urine Negative (Negative); Color,Urine Light Yellow; Glucose,Urine (UA) Negative (Negative); Ketones,Urine Negative (Negative); Leukocyte Esterase,Urine Trace (Negative); Nitrite,Urine Negative (Negative); Protein,Urine Negative (Negative); RBC,Urine <1 /hpf (0-5); Specific Gravity,Urine 1.008 (1.001-1.035); Squamous Epithelial Cell,Urine <1 /hpf (0-4); Urobilinogen,Urine <2.0 mg/dL (<2.0); WBC,Urine 2 /hpf (0-5)
[2019-07-12] MEDS: LACTATED RINGERS 1,000 ML IV SCH ×2 (19:14→23:14)
--- NOTE | 2019-07-12 19:27 | P.HPOB ---
History of Present Illness H&P Date: 07/12/19 Chief Complaint: Contractions This patient is a pleasant 28-year-old 3 para 2 female estimated date of confinement 11/18/2019 estimated gestational age 21-4/7 weeks who presents to labor and delivery with complaint of cramping that began earlier today. Patient's care is per Dr. Randhawa. It is complicated by a a large subchorionic bleed that was initially found in the first trimester. At this time the subchorionic bleeding was over 7 cm. Patient was subsequently referred to maternal- medicine at approximately 15 weeks due to concern for possible amniotic band, however they felt this was just separation of the membranes and most likely secondary to the subchorionic bleed. She's been followed with Dr. Randhawa and with maternal- medicine. Most recently she was seen on July 01 and had an ultrasound which showed the area of separation was last is returning 6.6 x 6 x 4.5 cm. Patient denies any bleeding or leaking of fluid. Patient's evaluation here shows her cervix to be closed digitally and no bleeding. fibronectin is negative. Patient however is having graphable contractions every 2-4 minutes which she rates 7 out of 10. I contacted Dr. Sloan (maternal- medicine) and discussed possible Indocin for these contractions. He is recommended a trial of this 25 mg every 6 hours for 48 hours. If she were to get beyond 22 weeks and continued to have symptomatology then he recommended steroids at this time and transfer to a tertiary facility. Review of Systems Genitourinary: Reports as per HPI, Reports Past Medical History Past Medical History: GERD/Reflux Additional Past Medical History / Comment(s): Denies History of Any Multi-Drug Resistant Organisms: None Reported Past Surgical History: Appendectomy Past Anesthesia/Blood Transfusion Reactions: No Reported Reaction Past Psychological History: No Psychological Hx Reported Smoking Status: Never smoker Past Alcohol Use History: None Reported Past Drug Use History: None Reported - Past Family History Mother Family Medical History: Hypertension Medications and Allergies Home Medications Medication Instructions Recorded Confirmed Type Pnv,Calcium 72/Iron/Folic Acid 1 tab PO HS 04/19/19 07/12/19 History [ Plus Tablet] Allergies Allergy/AdvReac Type Severity Reaction Status Date / Time No Known Allergies Allergy Verified 07/12/19 17:04 Exam Vital Signs Temp Pulse Resp BP 07/12/19 17:29 97.2 F L 77 14 130/66 Intake and Output 07/12/19 07/12/19 07/12/19 06:59 14:59 22:59 Other: Weight 63.049 kg - OBG Physical Exam Abdomen: bowel sounds normal, no diffuse tenderness, no bruit present, no guarding noted, no hepatomegaly, no splenomegaly, no mass Vulva: both: normal Vagina: normal moisture, no discharge Cervix: no lesion (Cervix is closed and thick per RN.), no discharge Uterus: enlarged Results blood work shows she is O positive, rubella immune, RPR was nonreactive hepatitis B was negative HIV is nonreactive, quad screen is negative, ultrasound done on July 01 at maternal medicine showed estimated weight of 294 g/19 weeks and 2 days. Cervical length at that time was 49 mm, separation of the anterior membrane was 6.6 x 4.5 x 6 cm. Result Diagrams: 07/12/19 17:23 Abnormal Lab Results - Last 24 Hours (Table) 07/12/19 Range/Units 17:44 Urine Appearance Cloudy H (Clear) Ur Leukocyte Esterase Trace H (Negative) Amorphous Sediment Rare H (None) /hpf Urine Bacteria Occasional H (None) /hpf Assessment and Plan Assessment: This is a pleasant 28-year-old 3 para 2 female 21-4/7 weeks gestation with known a separation of the amniotic membrane most likely secondary to a chronic subchorionic bleed that developed in the first trimester. She is having no active bleeding at this time is having regular painful contractions. I've consulted maternal- medicine and they've recommended a trial of Indocin at this time. Patient understands at this time baby is previable and they do not recommend instituting steroids were transfer until 22 weeks. Due to the patient's history of GERD/reflux I'm also going to give her Carafate at the same time. Repeat CBC in the morning. (1) 21 weeks gestation of Current Visit: Yes Status: Acute Code(s): Z3A.21 - 21 WEEKS GESTATION OF SNOMED Code(s): 16020307 (2) Separation of chorion and amnion membranes, antepartum Current Visit: Yes Status: Acute Code(s): O41.8X90 - OTH DISRD OF AMNIOTIC FLUID AND MEMBRNS, UNSP TRI, UNSP SNOMED Code(s): 885810605 (3) contractions Current Visit: Yes Status: Acute Code(s): O47.9 - FALSE LABOR, UNSPECIFIED SNOMED Code(s): 050221223
[2019-07-12] MEDS: SUCRALFATE 1 GM TAB PO SCH (19:38)
[2019-07-12] MEDS: INDOMETHACIN 25 MG CAP PO SCH (19:38)
[2019-07-13] MEDS: INDOMETHACIN 25 MG CAP PO SCH ×4 (01:43→19:35)
[2019-07-13 01:54] VITALS: RESP 16
[2019-07-13] MEDS: LACTATED RINGERS 1,000 ML IV SCH (07:01)
--- NOTE | 2019-07-13 07:14 | P.PN ---
Progress Note - Text Progress Note Date: 07/13/19 Patient is resting this morning without new complaints. She states that her contractions have significantly decreased since starting Indocin. She is having no bleeding or leaking of fluid. Plan today is to check another CBC and continue Indocin therapy. If she continues to do well discharge home tomorrow.
[2019-07-13] MEDS: SUCRALFATE 1 GM TAB PO SCH ×2 (07:43→17:40)
[2019-07-13 07:59] LABS: Basophils % (A) 0 %; Eosinophils # (A) 0.1 k/uL (0-0.7); Eosinophils % (A) 2 %; HCT 30.3 % (34.0-46.0); HGB 10.1 gm/dL (11.4-16.0); Lymphocytes # (A) 1.5 k/uL (1.0-4.8); Lymphocytes % (A) 26 %; MCH 31.1 pg (25.0-35.0); MCHC 33.4 g/dL (31.0-37.0); MCV 93.3 fL (80.0-100.0); Mean Platelet Volume 8.4; Monocytes # (A) 0.2 k/uL (0-1.0); Monocytes % (A) 4 %; Neutrophils % (A) 67 %; Platelet Count 147 k/uL (150-450); RBC 3.24 m/uL (3.80-5.40)
[2019-07-13] MEDS ORDERED: MAG HYDROX/AL HYDROX/SIMETH 30 ML CUP PO PRN (18:41)
[2019-07-14] MEDS: INDOMETHACIN 25 MG CAP PO SCH ×2 (01:31→07:45)
--- NOTE | 2019-07-14 07:43 | P.PN ---
Progress Note - Text Progress Note Date: 07/14/19 Patient continues to resting without new complaints. She denies any significant contractions. She is not having any bleeding or leaking of fluid. Plan today is to give her her dose of Indocin this morning and I will discharge home. Patient was instructed to follow up with Dr. Randhawa next week. I also gave her strict instructions to call she has any recurrence of her symptoms, vaginal bleeding, and/or leaking of fluid. We also discussed the fact that they did not recommend giving her steroids unless her symptoms persist and she was beyond 22 weeks.
[2019-07-14] MEDS: SUCRALFATE 1 GM TAB PO SCH (07:45)
--- NOTE | 2019-07-14 07:47 | P.DS ---
Providers Date of admission: 07/12/19 19:01 Expected date of discharge: 07/14/19 Attending physician: Dorcas Randhawa Primary care physician: Dorcas Randhawa - Discharge Diagnosis(es) (1) 21 weeks gestation of Current Visit: Yes Status: Acute (2) Separation of chorion and amnion membranes, antepartum Current Visit: Yes Status: Acute (3) contractions Current Visit: Yes Status: Acute Hospital Course: Please see dictated H&P for intimate details of this patient's admission. Brief summary this is a pleasant 28-year-old 3 para 2 female 21-4/7 weeks gestation admitted with known membranes separation secondary to a first trimester subchorionic bleed. Patient's having regular contractions on admission I did contact maternal- medicine and she was started on Indocin. This worked very well and her contractions dissipated. I watched her for approximately 48 hours was felt be stable for discharge home follow up with Dr. Randhawa in 1 week. Patient Condition at Discharge: Good Plan - Discharge Summary New Discharge Prescriptions: No Action Pnv,Calcium 72/Iron/Folic Acid [ Plus Tablet] 1 tab PO HS Discharge Medication List Pnv,Calcium 72/Iron/Folic Acid [ Plus Tablet] 1 tab PO HS 04/19/19 [History] Follow up Appointment(s)/Referral(s): Dorcas Randhawa DO [Primary Care Provider] - 1 Week Patient Instructions/Handouts: Subchorionic Hemorrhage (ED) Activity/Diet/Wound Care/Special Instructions: As discussed, no intercourse or strenuous activities. Please call if any significant regular contractions, vaginal bleeding, and/or leaking of fluid. Please contact the office see Dr. Randhawa in 1 week. Discharge Disposition: HOME SELF-CARE
[2019-07-14 07:56] VITALS: BP 116/61; PULSE 77; TEMP 97.3
== END 2019-07-14 09:30 | disposition home or self-care (01) ==
LOC: FBPOP 16:49 → 4FBP 19:00 → UNDOADMOB 19:00 → INTOOBSV 19:01 → OBSVTOIN 19:01 → UNDODISIN 07-14 09:30
PROVIDERS: ADMIT Obstetrics & Gynecology; ATTEND Obstetrics & Gynecology
DX: O60.02 Preterm labor without delivery, second trimester (principal); O00-O9A Pregnancy, childbirth and the puerperium; O99.62 Diseases of the digestive system complicating childbirth; K21.9 Gastro-esophageal reflux disease without esophagitis; Z3A.21 21 weeks gestation of pregnancy; Z82.49 Family history of ischemic heart disease and other diseases of the circulatory system; Z79.899 Other long term (current) drug therapy; Z90.49 Acquired absence of other specified parts of digestive tract
CPT/HCPCS: 96360; 82731; 85025 ×2; 81001; G0463; G0378 ×3; 99213

== ENCOUNTER → 2019-08-14 | Outpatient (CLI) | payer OTHER ==
[2019-08-14 11:12] LABS: HCT 34.5 % (34.0-46.0); HGB 11.5 gm/dL (11.4-16.0); MCHC 33.2 g/dL (31.0-37.0); MCV 96.3 fL (80.0-100.0); Mean Platelet Volume 8.6; Platelet Count 160 k/uL (150-450); RBC 3.58 m/uL (3.80-5.40); RDW 12.9 % (11.5-15.5); WBC 6.9 k/uL (3.8-10.6)
== END | disposition home or self-care (01) ==
LOC: LABWHC1 09:51
PROVIDERS: ATTEND Obstetrics & Gynecology
DX: Z34.82 Encounter for supervision of other normal pregnancy, second trimester (principal); Z3A.00 Weeks of gestation of pregnancy not specified
CPT/HCPCS: 36415; 82950; 85027

== ENCOUNTER 2019-10-02 19:33 | Observation (INO) | payer OTHER ==
[2019-10-02] MEDS ORDERED: LACTATED RINGERS 1,000 ML IV SCH ×2 (20:30→22:00)
[2019-10-02 20:40] LABS: Appearance,Urine Clear (Clear); Bilirubin,Urine Negative (Negative); Blood,Urine Negative (Negative); Color,Urine Light Yellow; Glucose,Urine (UA) Negative (Negative); Ketones,Urine Negative (Negative); Leukocyte Esterase,Urine Negative (Negative); Nitrite,Urine Negative (Negative); Protein,Urine Negative (Negative); Specific Gravity,Urine 1.004 (1.001-1.035); Urobilinogen,Urine <2.0 mg/dL (<2.0)
[2019-10-02 20:46] VITALS: BP 123/73; PULSE 79; RESP 15; TEMP 97.6
--- NOTE | 2019-10-02 21:44 | US ---
EXAMINATION TYPE: US OB limited DATE OF EXAM: 10/02/2019 COMPARISON: US 2019 CLINICAL HISTORY: contractions. contractions, ultrasound for position only, 3, para 2 EXAM PERFORMED: Transabdominal (TA) GESTATIONAL AGE / DATING Physician Established: (33 weeks/2 days) EDC: 11/18/2019 No growth performed on today?s study per ordering physician SURVEY PRESENTATION: Vertex HEART RATE: 165 bpm RHYTHM: Normal IMPRESSION: Limited exam shows cephalic presentation. No complicating process seen.
[2019-10-02] MEDS ORDERED: BUTORPHANOL 1 MG/ML 1 ML VIAL IV PRN (21:45)
[2019-10-02] MEDS ORDERED: BETAMET ACET-BETAMETH SOD PHOS 6 MG/ML VIAL IM SCH (22:00)
[2019-10-02] MEDS: LACTATED RINGERS 1,000 ML IV SCH (22:30)
[2019-10-03] MEDS: LACTATED RINGERS 1,000 ML IV SCH (06:02)
[2019-10-03] MEDS ORDERED: MAGNESIUM SULFATE-WATER PMX 4 GM in WATER FOR INJECTION 1 100ML.BAG IVPB ONE (06:19)
[2019-10-03] MEDS ORDERED: MAGNESIUM SULFATE-D5W PMX 1 GM in DEXTROSE/WATER 1 100ML.BAG IVPB SCH (06:30)
[2019-10-03] MEDS ORDERED: DEXTROSE 5% IV SCH ×2 (06:30)
[2019-10-03] MEDS ORDERED: MAGNESIUM SULFATE WATER PMX IV SCH ×2 (06:30)
[2019-10-03] MEDS ORDERED: WATER IV SCH ×2 (06:30)
--- NOTE | 2019-10-03 06:32 | P.HPOB ---
History of Present Illness H&P Date: 10/03/19 Chief Complaint: Intrauterine at 33 weeks 3 days gestation: labor Rose is a 28 she'll at 33 weeks gestation who began having contractions late this afternoon every approximately 3-5 minutes. She noted there beginning to get painful and she called our office. I advised her that time to come to labor and delivery for evaluation due to her significant prematurity. On arrival she was examined a fibronectin was done and was negative. Urina lysis was also done and was negative. A category 1 tracing is noted but, she was erendira every approximately 3 minutes. Her cervix was 1 cm 50% effaced and not well engaged at that time. I did order an ultrasound to verify position and it was vertex. On reexamination approximately 2 hours later her cervix had not made any significant change in discussion due to the fact she was continued of contractions made with the patient and she opted for admission and continued IV hydration and Stadol to help relieve the pain and states I would make the contractions go away. She was monitored through the night and did not have much in way of contractions following the Stadol, however approximate 4:30 she began having pain and it woke her up erendira every 2 minutes with this relatively significant amount of pain rates as 7 out of 10. heart tones remained category 1 tracing with excellent variability and accelerations. I did examine the patient myself this morning at approximately 6 to 6:30 in the morning and she was dilated to 1-2 cm approximate 60-70% effaced and -3 station. Due to the cervical change and her significant prematurity we will plan transfer to [facility] to Dr. Sloan as she is seeing them earlier in this for placental/membranes separation. This was large in size approximately 6-7 cm earlier in the but on her last ultrasound apparently had improved or resolved. She did receive 1 dose of betamethasone last night and is due for another dose later this evening. I did call [facility] and spoke with the resident physician and the decision was made to not start mag sulfate by them. This will certainly however make it more comfortable for her during her transfer. Past medical history none: Past surgical history appendectomy: Family history noncontributory: Social history none: ALLERGIES none On physical exam vital signs are stable and she is afebrile. Heart regular, lungs clear, extremities without pain. Abdomen soft with contractions noted every 2-3 minutes. Assessment intrauterine 33 weeks: labor Plan transfer to high risk facility Past Medical History Past Medical History: GERD/Reflux Additional Past Medical History / Comment(s): Denies History of Any Multi-Drug Resistant Organisms: None Reported Past Surgical History: Appendectomy Past Anesthesia/Blood Transfusion Reactions: No Reported Reaction Past Psychological History: No Psychological Hx Reported Smoking Status: Never smoker Past Alcohol Use History: None Reported Past Drug Use History: None Reported - Past Family History Mother Family Medical History: Hypertension Medications and Allergies Home Medications Medication Instructions Recorded Confirmed Type Pnv,Calcium 72/Iron/Folic Acid 1 tab PO HS 04/19/19 10/02/19 History [ Plus Tablet] Allergies Allergy/AdvReac Type Severity Reaction Status Date / Time No Known Allergies Allergy Verified 10/02/19 19:44 Exam Osteopathic Statement: *. No significant issues noted on an osteopathic structural exam other than those noted in the History and Physical/Consult. Vital Signs Temp Pulse Resp BP Pulse Ox 10/02/19 20:42 97.6 F 79 15 123/73 98 Intake and Output 10/02/19 10/02/19 10/03/19 14:59 22:59 06:59 Other: # Voids 1 Weight 66.678 kg
== END 2019-10-03 07:05 | disposition other institution (70) ==
LOC: FBPOP 19:33 → 4FBP 22:06
PROVIDERS: ADMIT Obstetrics & Gynecology; ATTEND Obstetrics & Gynecology
DX: O60.03 Preterm labor without delivery, third trimester (principal); Z3A.33 33 weeks gestation of pregnancy; O99.613 Diseases of the digestive system complicating pregnancy, third trimester; K21.9 Gastro-esophageal reflux disease without esophagitis; Z90.49 Acquired absence of other specified parts of digestive tract; Z82.49 Family history of ischemic heart disease and other diseases of the circulatory system
CPT/HCPCS: 59025; 96361 ×2; 96372; 96374; 82731; 81003; 76815; G0463; G0378 ×2; J0702; J0595; 96360; 99213

== ENCOUNTER 2019-11-15 06:00 | Inpatient (IN) | payer OTHER ==
--- NOTE | 2019-11-14 13:35 | P.HPOB ---
History of Present Illness H&P Date: 11/14/19 Chief Complaint: Induction of labor This is a 29 y.o. female, 3, para 2, with an estimated date of confinement of 11/18/2019, estimated gestational age of 39-4/7 weeks, who presents for induction of labor. Her preganancy has been complicated by a membrane separation that was diagnosed around 16 weeks and she had bleeding and cramping off and on. She was also followed by MFM. She did get 2 doses of Celestone at around 34 weeks when she began erendira. At her latest US, the membrane separation was no longer seen. labs: GC/Chlamydia/trich-neg Random glucose-89 Hemoglobin-12.3 Hepatitis B suface antigen-neg Rubella-immune Syphillis antibody-NR HIV-NR Blood type-O+ Antibody screen-neg Quad-neg 1 hr. GTT-127 GBS-neg OB Hx: . History of 2 vaginal deliveries at term. Non Destructive Evaluation Specialist Hx: Treated for GC & Chlamydia-2013, GUERO-neg. Social Hx: . Works part-time for [employer]. Review of Systems Constitutional: Denies chills, Denies fever Eyes: denies blurred vision, denies pain Ears, nose, mouth and throat: Denies headache, Denies sore throat Cardiovascular: Denies chest pain, Denies shortness of breath Respiratory: Denies cough Gastrointestinal: Reports abdominal pain (irreg. ctxs) Genitourinary: Reports pelvic pain, Reports Musculoskeletal: Reports low back pain Integumentary: Denies pruritus, Denies rash Neurological: Denies numbness, Denies weakness Past Medical History Past Medical History: GERD/Reflux History of Any Multi-Drug Resistant Organisms: None Reported Past Surgical History: Appendectomy Past Anesthesia/Blood Transfusion Reactions: No Reported Reaction Past Psychological History: No Psychological Hx Reported Smoking Status: Never smoker Past Alcohol Use History: None Reported Past Drug Use History: None Reported - Past Family History Mother Family Medical History: Hypertension Medications and Allergies Home Medications Medication Instructions Recorded Confirmed Type Pnv,Calcium 72/Iron/Folic Acid 1 tab PO HS 04/19/19 10/02/19 History [ Plus Tablet] Allergies Allergy/AdvReac Type Severity Reaction Status Date / Time No Known Allergies Allergy Verified 10/02/19 19:44 Exam Osteopathic Statement: *. No significant issues noted on an osteopathic structural exam other than those noted in the History and Physical/Consult. HEENT: within normal limits Heart: regular rate and rhythm Lungs: clear to auscultation bilaterally Abdomen: , non-tender Cervix: 1.5 cm/60%/-2 heart tones-reactive Contractions: irregular Extremities: neg. Shar's Assessment and Plan (1) 39 weeks gestation of Status: Acute Code(s): Z3A.39 - 39 WEEKS GESTATION OF SNOMED Code(s): 63121794 Plan: Proceed with oxytocin induction of labor. Expectant management. Epidural anesthesia if desired.
[2019-11-15] MEDS ORDERED: OXYTOCIN 10 UNIT/ML 1 ML VIAL IM PRN (06:28)
[2019-11-15] MEDS ORDERED: TERBUTALINE 1 MG/ML VIAL SQ PRN (06:28)
[2019-11-15] MEDS ORDERED: LIDOCAINE 1% (10MG/ML) FOR IV START INTRADERMA PRN (06:28)
[2019-11-15] MEDS ORDERED: CARBOPROST TROMETHAMINE 250 MCG/ML 1 ML AMP IM PRN (06:28)
[2019-11-15] MEDS ORDERED: LIDOCAINE 0.5% (PF) 5 MG/ML (50 ML SDV) SQ PRN (06:28)
[2019-11-15] MEDS ORDERED: METHYLERGONOVINE 0.2 MG/ML 1 ML AMP IM PRN (06:28)
[2019-11-15] MEDS ORDERED: LACTATED RINGERS 1,000 ML IV SCH (06:28)
[2019-11-15] MEDS ORDERED: OXYTOCIN 30 UNITS/500 ML NS 30 UNIT in SALINE 1 500ML.BAG IV SCH (06:28)
[2019-11-15 06:59] LABS: Basophils % (A) 0 %; Eosinophils # (A) 0.1 k/uL (0-0.7); Eosinophils % (A) 1 %; HGB 11.4 gm/dL (11.4-16.0); Lymphocytes # (A) 2.1 k/uL (1.0-4.8); Lymphocytes % (A) 28 %; MCH 30.5 pg (25.0-35.0); MCHC 32.5 g/dL (31.0-37.0); MCV 93.9 fL (80.0-100.0); Mean Platelet Volume 9.5; Monocytes # (A) 0.4 k/uL (0-1.0); Monocytes % (A) 6 %; Neutrophils # (A) 4.8 k/uL (1.3-7.7); Neutrophils % (A) 63 %; Platelet Count 191 k/uL (150-450); RBC 3.73 m/uL (3.80-5.40); RDW 13.5 % (11.5-15.5); WBC 7.5 k/uL (3.8-10.6)
[2019-11-15] MEDS ORDERED: BUTORPHANOL 1 MG/ML 1 ML VIAL IV PRN (10:08)
--- NOTE | 2019-11-15 12:30 | P.PROBDLV ---
Vaginal Delivery Note - . Vaginal Delivery Note: The patient progressed to complete dilation after oxytocin induction of labor and artificial rupture membranes with clear fluid noted. Once reaching complete dilation, she began pushing. Infant's head came to a crown. With one further push the 's head delivered across the perineum followed by the anterior shoulder. Nose and mouth were bulb suctioned. With one further push, the remainder the infant easily delivered and was placed on mother's abdomen. Was clamped and cut and was taken to warmer for evaluation. A viable female infant is noted with scores of 9 at 1 minute and 9 at 5 minutes and weight is 6 lbs. 13 oz. Placenta delivered shortly thereafter, intact, with a three-vessel cord. Uterus contracted fairly well after oxytocin was given and uterine massage was carried out. There is an area that appears to be old infarct within the membranes. Placenta will be sent to pathology. Inspection of the perineum revealed no perineal lacerations. Her was small bilateral periurethral abrasions that were noted to be hemostatic. Estimated blood loss is approximately 200 mL's. Both mother and are in stable condition.
[2019-11-15] MEDS ORDERED: WITCH HAZEL 1 EACH MED..PAD TOPICAL PRN (12:34)
[2019-11-15] MEDS ORDERED: diphenhydrAMINE 25 MG CAP PO PRN (12:34)
[2019-11-15] MEDS ORDERED: BENZOCAINE/MENTHOL SPRAY 1 GM/SPRAY AEROSOL TOPICAL PRN (12:34)
[2019-11-15] MEDS ORDERED: diphenhydrAMINE 50 MG/ML 1 ML VIAL IVP PRN ×2 (12:34)
[2019-11-15] MEDS ORDERED: OXYTOCIN 20 UNITS/1000 ML NS 1,000 ML IV SCH (12:34)
[2019-11-15] MEDS ORDERED: diphenhydrAMINE 50 MG CAP PO PRN (12:34)
[2019-11-15] MEDS ORDERED: LANOLIN CREAM 5 GM TUBE TOPICAL PRN (12:34)
[2019-11-15] MEDS ORDERED: HYDROCORTISONE 2.5% RECTAL CREAM 30 GM TUBE RECTAL PRN (12:34)
[2019-11-15] MEDS ORDERED: SIMETHICONE 80 MG CHEWABLE PO PRN (12:34)
[2019-11-15] MEDS ORDERED: ACETAMINOPHEN TAB 325 MG TAB PO PRN (12:34)
[2019-11-15] MEDS ORDERED: ZOLPIDEM 5 MG TAB PO PRN (12:34)
[2019-11-15] MEDS: IBUPROFEN 600 MG TAB PO PRN ×2 (15:04→20:42)
[2019-11-15] MEDS: SENNOSIDES-DOCUSATE SODIUM 1 EACH TAB PO SCH (20:58)
[2019-11-15] MEDS ORDERED: PRENATAL VIT-IRON-FOLIC ACID 1 EACH CAP PO SCH (21:00)
[2019-11-16 05:27] LABS: Basophils % (A) 0 %; Eosinophils # (A) 0.1 k/uL (0-0.7); Eosinophils % (A) 1 %; HCT 30.9 % (34.0-46.0); HGB 10.2 gm/dL (11.4-16.0); Hypochromasia Slight; Lymphocytes # (A) 2.1 k/uL (1.0-4.8); Lymphocytes % (A) 22 %; MCH 31.4 pg (25.0-35.0); MCHC 32.8 g/dL (31.0-37.0); MCV 95.6 fL (80.0-100.0); Monocytes # (A) 0.5 k/uL (0-1.0); Monocytes % (A) 5 %; Neutrophils # (A) 6.9 k/uL (1.3-7.7); Neutrophils % (A) 71 %; Platelet Count 177 k/uL (150-450); RBC 3.23 m/uL (3.80-5.40); RDW 13.6 % (11.5-15.5); WBC 9.7 k/uL (3.8-10.6)
[2019-11-16] MEDS: SENNOSIDES-DOCUSATE SODIUM 1 EACH TAB PO SCH (07:44)
[2019-11-16] MEDS: IBUPROFEN 600 MG TAB PO PRN (08:14)
[2019-11-16 08:26] VITALS: BP 128/76; PULSE 69; RESP 17; TEMP 98.7
--- NOTE | 2019-11-16 08:54 | P.DS ---
Providers Date of admission: 11/15/19 06:14 Expected date of discharge: 11/16/19 Attending physician: Dorcas Randhawa Primary care physician: Stated None - Discharge Diagnosis(es) (1) 39 weeks gestation of Current Visit: No Status: Acute Hospital Course: This is a 29-year-old female 3 para 2 at 39-4/7 weeks who presented for induction of labor. She underwent oxytocin induction of labor and delivered vaginally a viable female with scores of 9 at 1 minute and 9 at 5 minutes and weight of 6 lbs. 13 oz. Her course has been uncomplicated. She is breast-feeding. Lochia is decreasing. Her pain is well- controlled. Vital signs are stable. Abdomen is soft with fundus firm and nontender. Extremities show negative Homans. Impression is status post vaginal delivery day #1. Plan is to discharge home today. Routine instructions are given. She will be given up her prescription for ibuprofen and a breast pump. She is advised to call the office if she has any further questions or concerns prior to her appointment time. She is advised to follow up in 6 weeks in the office for a check. Procedures: Oxytocin induction of labor Spontaneous vaginal delivery of a viable female infant on 11/15/2019 Patient Condition at Discharge: Stable Plan - Discharge Summary New Discharge Prescriptions: New Ibuprofen [Motrin] 600 mg PO Q6HR PRN #60 tab PRN Reason: Mild Pain Or Fever >= 100.5 Continue Pnv,Calcium 72/Iron/Folic Acid [ Plus Tablet] 1 tab PO HS Discharge Medication List Pnv,Calcium 72/Iron/Folic Acid [ Plus Tablet] 1 tab PO HS 04/19/19 [History] Ibuprofen [Motrin] 600 mg PO Q6HR PRN #60 tab 11/16/19 [Rx] Follow up Appointment(s)/Referral(s): Dorcas Randhawa DO [Doctor of Osteopathic Medicine] - 6 Weeks Activity/Diet/Wound Care/Special Instructions: Instructions 1. Do not begin any exercise program for 3 weeks. 2. Do not resume sexual relations for 3 weeks or longer if uncomfortable. 3. You may take tub baths or showers at any time. 4. You may use tampons if desired after 3 weeks. 5. Keep the area of episiotomy (stitches) clean and dry. 6. If you are not nursing, wear a good fitting, supportive bra during the day and limit fluid intake for at least 1 week to prevent breast engorgement. 7. Call the office, [phone], within the next week to make appointment for your 6 week checkup if it has not already been made. 8. Report any of the following occurrences to the doctor promptly: a. Heavy, excessive bleeding b. Chills, fever c. Burning or frequency of urination d. Pain or redness and breasts if nursing e. Increasing pain or swelling in episiotomy (stitches). In addition to the above instructions, the following additional should be followed: 1. No heavy lifting or straining (exercising) until after 6 week checkup. 2. Keep abdominal incision clean and dry: You may wear a dressing if more comfortable. 3. Make office appointment for 10 days after going home or as instructed by her doctor. Discharge Disposition: HOME SELF-CARE
== END 2019-11-16 13:35 | disposition home or self-care (01) | DRG 807 ==
LOC: 4FBP 06:14
PROVIDERS: ADMIT Obstetrics & Gynecology; ATTEND Obstetrics & Gynecology
PROC: 10E0XZZ Delivery of Products of Conception, External Approach (ICD-10-PCS; principal; 2019-11-15)
PROC: 3E033VJ Introduction of Other Hormone into Peripheral Vein, Percutaneous Approach (ICD-10-PCS; principal; 2019-11-15)
PROC: 10907ZC Drainage of Amniotic Fluid, Therapeutic from Products of Conception, Via Natural or Artificial Opening (ICD-10-PCS; principal; 2019-11-15)
DX: O45.93 Premature separation of placenta, unspecified, third trimester (principal); Z37.0 Single live birth; O99.62 Diseases of the digestive system complicating childbirth; K21.9 Gastro-esophageal reflux disease without esophagitis; Z3A.39 39 weeks gestation of pregnancy; Z90.49 Acquired absence of other specified parts of digestive tract; Z82.49 Family history of ischemic heart disease and other diseases of the circulatory system
CPT/HCPCS: 85025; 86850; 86900; 86901; 88307

== ENCOUNTER 2023-12-09 16:39 | Inpatient (IN) | payer OTHER ==
[2023-12-09 17:10] LABS: Appearance,Urine Clear (Clear); Bilirubin,Urine Negative (Negative); Blood,Urine Negative (Negative); Color,Urine Colorless; Glucose,Urine (UA) Negative (Negative); Ketones,Urine Negative (Negative); Leukocyte Esterase,Urine Negative (Negative); Nitrite,Urine Negative (Negative); PH, Urine 5.5 (5.0-8.0); Protein,Urine Negative (Negative); Specific Gravity,Urine 1.004 (1.001-1.035); Urobilinogen,Urine <2.0 mg/dL (<2.0)
[2023-12-09 17:25] LABS: Basophils % (A) 0 %; Eosinophils # (A) 0.1 k/uL (0-0.7); Eosinophils % (A) 1 %; HCT 32.1 % (34.0-46.0); HGB 10.4 gm/dL (11.4-16.0); Lymphocytes # (A) 1.6 k/uL (1.0-4.8); Lymphocytes % (A) 22 %; MCH 29.6 pg (25.0-35.0); MCHC 32.4 g/dL (31.0-37.0); MCV 91.3 fL (80.0-100.0); Monocytes # (A) 0.4 k/uL (0-1.0); Monocytes % (A) 5 %; Neutrophils # (A) 5.1 k/uL (1.3-7.7); Neutrophils % (A) 71 %; Platelet Count 215 k/uL (150-450); RBC 3.52 m/uL (3.80-5.40); RDW 13.5 % (11.5-15.5); WBC 7.2 k/uL (3.8-10.6)
[2023-12-09 17:38] LABS: ALT 11 U/L (4-34); AST 23 U/L (14-36); African American GFR (CKD) >90 (>60 ml/min/1.73 sqM); Blood Urea Nitrogen 6 mg/dL (7-17); Non-African American GFR(CKD) >90 (>60 ml/min/1.73 sqM); Uric Acid 2.6 mg/dL (3.7-7.4)
[2023-12-09 17:45] LABS: Creatinine,Urine Random 24.5 mg/dL; Protein/Creatinine Ratio,Urine 0.653
[2023-12-09 18:15] LABS: LDH 210 U/L (120-246)
[2023-12-10] MEDS ORDERED: OXYTOCIN 10 UNIT/ML 1 ML VIAL IM PRN (05:12)
[2023-12-10] MEDS ORDERED: TRANEXAMIC 1,000 MG/100ML-NACL 1,000 MG in EMPTY BAG 1 BAG IV PRN (05:12)
[2023-12-10] MEDS ORDERED: TERBUTALINE 1 MG/ML VIAL SQ PRN (05:12)
[2023-12-10] MEDS ORDERED: LIDOCAINE 0.5% (PF) 5 MG/ML (50 ML SDV) SQ PRN (05:12)
[2023-12-10] MEDS ORDERED: METHYLERGONOVINE 0.2 MG/ML 1 ML AMP IM PRN (05:12)
[2023-12-10] MEDS ORDERED: CARBOPROST TROMETHAMINE 250 MCG/ML 1 ML AMP IM PRN (05:12)
[2023-12-10] MEDS ORDERED: miSOPROStoL 200 MCG TAB PO PRN (05:12)
[2023-12-10] MEDS: LACTATED RINGERS 1,000 ML IV SCH (05:40)
[2023-12-10] MEDS: OXYTOCIN 30 UNITS/500 ML NS 30 UNIT in SALINE 1 500ML.BAG IV SCH (05:55)
[2023-12-10 06:00] LABS: Basophils % (A) 0 %; Eosinophils # (A) 0.1 k/uL (0-0.7); Eosinophils % (A) 1 %; HCT 34.3 % (34.0-46.0); HGB 11.1 gm/dL (11.4-16.0); Lymphocytes # (A) 2.1 k/uL (1.0-4.8); Lymphocytes % (A) 30 %; MCH 29.5 pg (25.0-35.0); MCHC 32.4 g/dL (31.0-37.0); MCV 91.1 fL (80.0-100.0); Mean Platelet Volume 9.6; Monocytes # (A) 0.3 k/uL (0-1.0); Monocytes % (A) 4 %; Neutrophils # (A) 4.3 k/uL (1.3-7.7); Neutrophils % (A) 63 %; Platelet Count 194 k/uL (150-450); RBC 3.76 m/uL (3.80-5.40); RDW 13.5 % (11.5-15.5); WBC 6.8 k/uL (3.8-10.6)
--- NOTE | 2023-12-10 08:31 | P.HPOB ---
History of Present Illness H&P Date: 12/10/23 Chief Complaint: Elevated blood pressures Ms. Larsen is a 33 year old at 38 weeks and 4 days with EDC of 12/20/2023 by LMP consistent with 10 week US who was sent to L&D yesterday from the office for elevated blood pressures. In triage, she continued to have mild-range blood pressures and a urine P:C of 0.6 diagnostic of pre-eclampsia without severe features. The patient was admitted overnight for induction this morning. The patient denies headache, visual changes, and RUQ pain. She is feeling normal movement. The has been otherwise uncomplicated. The fetus is estimated in the 48%ile for weight based on a 32 week growth US: OB history: 3 FTVD, no complications; largest baby 8#3oz work-up: blood type O positive, antibody screen negative, rubella immune, VDRL non-reactive, HBsAg negative, HIV negative, NIPT negative, 1 hour GTT 141, 3 hour GTT wnl, GBS negative. Past Medical History Past Medical History: GERD/Reflux Additional Past Medical History / Comment(s): Denies History of Any Multi-Drug Resistant Organisms: None Reported Past Surgical History: Appendectomy Past Anesthesia/Blood Transfusion Reactions: No Reported Reaction Past Psychological History: No Psychological Hx Reported Smoking Status: Never smoker Past Alcohol Use History: None Reported Past Drug Use History: None Reported - Past Family History Mother Family Medical History: Hypertension Medications and Allergies Home Medications Medication Instructions Recorded Confirmed Type Vit No.180/Iron/Folic 1 tab PO HS 04/19/19 12/09/23 History [ Plus Vitamin-Mineral] Allergies Allergy/AdvReac Type Severity Reaction Status Date / Time No Known Allergies Allergy Verified 12/09/23 16:54 Exam Vital Signs Temp Pulse Resp BP Pulse Ox 12/10/23 06:05 97.8 F 69 15 127/65 99 12/10/23 03:30 96.9 F L 56 L 15 114/56 100 12/09/23 22:54 97.4 F L 84 19 123/75 99 12/09/23 20:00 97.7 F 79 15 135/76 100 12/09/23 18:38 97.5 F L 89 16 130/79 12/09/23 18:31 97.5 F L 89 16 130/79 Intake and Output 12/09/23 12/10/23 12/10/23 22:59 06:59 14:59 Other: # Voids 2 1 Weight 76.204 kg Focused physical exam is performed. This is a healthy-appearing in no apparent distress. Breathing is non-labored. Abdomen is gravid and non-tender. Cervical exam is 2.5 cm, 60 effacement, -2 station. AROM is undertaken with clear fluid noted. Extremities non-tender and non-edematous. heart tones are Category I and tocometer is graphing irregular contractions. Results Result Diagrams: 12/10/23 05:40 12/09/23 17:05 Abnormal Lab Results - Last 24 Hours (Table) 12/09/23 12/09/23 12/10/23 Range/Units 17:05 17:05 05:40 RBC 3.52 L 3.76 L (3.80-5.40) m/uL Hgb 10.4 L 11.1 L (11.4-16.0) gm/dL Hct 32.1 L (34.0-46.0) % BUN 6 L (7-17) mg/dL Creatinine 0.47 L (0.52-1.04) mg/dL Uric Acid 2.6 L (3.7-7.4) mg/dL Assessment and Plan Assessment: 33 year old at 38 weeks and 4 days here for mIOL for preE without SF Plan: Admit, clear liquid diet, pitocin per protocol, epidural prn, continuous tocometer and EFM, close monitoring of patient. Anticipate vaginal delivery.
[2023-12-10] MEDS: NALBUPHINE 10 MG/ML (10 ML MDV) IV PRN (13:37)
[2023-12-10] MEDS ORDERED: fentaNYL (PF) 50 MCG/ML 5 ML AMP ONE (17:50)
[2023-12-10] MEDS ORDERED: ROPIVACAINE 5 MG/ML 30 ML VIAL ONE (17:50)
[2023-12-10] MEDS ORDERED: SODIUM CHLORIDE 0.9% 250 ML BAG ONE (17:50)
[2023-12-10] MEDS ORDERED: BENZOCAINE/MENTHOL SPRAY 1 GM/SPRAY AEROSOL TOPICAL PRN (18:40)
[2023-12-10] MEDS ORDERED: diphenhydrAMINE 50 MG CAP PO PRN (18:40)
[2023-12-10] MEDS ORDERED: ACETAMINOPHEN TAB 325 MG TAB PO PRN (18:40)
[2023-12-10] MEDS ORDERED: diphenhydrAMINE 25 MG CAP PO PRN (18:40)
[2023-12-10] MEDS ORDERED: SIMETHICONE 80 MG CHEWABLE PO PRN (18:40)
[2023-12-10] MEDS ORDERED: diphenhydrAMINE 50 MG/ML 1 ML VIAL IVP PRN ×2 (18:40)
[2023-12-10] MEDS ORDERED: LANOLIN CREAM 1 GM TUBE TOPICAL PRN (18:40)
[2023-12-10] MEDS ORDERED: ZOLPIDEM 5 MG TAB PO PRN (18:40)
[2023-12-10] MEDS ORDERED: HYDROCORTISONE 2.5% RECTAL CREAM 30 GM TUBE RECTAL PRN (18:40)
--- NOTE | 2023-12-10 18:40 | P.PROBDLV ---
Vaginal Delivery Note - . Vaginal Delivery Note: DATE OF SERVICE: 12/10/2023 PROCEDURE: Normal Vaginal Delivery ATTENDING: Dr. Daysi Cruz MD ESTIMATED BLOOD LOSS: 300 mL FINDINGS: VMI, Apgars 9/9. Weight 7 pounds and 10 ounces (3455 grams) PROCEDURE: Ms. Larsen is a 33 year old at 38 weeks and 5 days presenting to labor and delivery for medical induction of labor for newly diagnosed pre- eclampsia without severe features. Blood pressures were mild range with a urine P:C of 0.6 on admission. The has been otherwise uncomplicated. For further details, please review the admitting H&P. Pitocin was started per protocol. Amniotomy was performed at 802 revealing clear amniotic fluid. The patient received epidural anesthesia per her request. The patient was completely dilated at 1821. A viable male was delivered at 1825 with three pushes. The infant was placed on the maternal abdomen and bulb suctioned. The was noted to be spontaneously crying. Cord was clamped and cut after a 30-second delay. The was handed off to the pediatric team. Placenta was delivered whole with gentle cord traction at 1828. Oxytocin was started to facilitate uterine tone. Uterine fundus was found to be firm and below the umbilicus upon fundal massage. Thorough examination of the cervix, vagina, periurethral area, and perineum revealed no lacerations. The patient is stable and allowed to begin the bonding process.
[2023-12-10] MEDS: SENNOSIDES-DOCUSATE SODIUM 1 EACH TAB PO SCH (20:54)
[2023-12-11] MEDS: IBUPROFEN 600 MG TAB PO PRN (02:08)
[2023-12-11 05:08] LABS: Basophils % (A) 0 %; Eosinophils % (A) 0 %; HCT 30.8 % (34.0-46.0); HGB 9.8 gm/dL (11.4-16.0); Lymphocytes # (A) 1.5 k/uL (1.0-4.8); Lymphocytes % (A) 16 %; MCH 29.6 pg (25.0-35.0); MCHC 31.8 g/dL (31.0-37.0); MCV 93.1 fL (80.0-100.0); Mean Platelet Volume 10.3; Monocytes # (A) 0.6 k/uL (0-1.0); Monocytes % (A) 6 %; Neutrophils # (A) 7.4 k/uL (1.3-7.7); Neutrophils % (A) 76 %; Platelet Count 196 k/uL (150-450); RBC 3.31 m/uL (3.80-5.40); RDW 13.5 % (11.5-15.5); WBC 9.7 k/uL (3.8-10.6)
[2023-12-11 08:06] VITALS: RESP 16
--- NOTE | 2023-12-11 08:46 | P.DS ---
Providers Date of admission: 12/09/23 18:04 Expected date of discharge: 12/11/23 Attending physician: Daysi Cruz MD Primary care physician: Stated None Hospital Course: Ms. Larsen is a 33 year old now PPD#1 s/p normal vaginal delivery after medical induction at 38 weeks for pre-eclampsia without severe features. Her labor and delivery were uncomplicated. Blood pressures have been normotensive in her course. The patient is doing well this morning and had no acute events overnight. She has no complaints this morning. She reports minimal lochia, passing flatus, voiding without difficulty, ambulating, and eat ing/drinking without nausea or vomiting. Infant doing well at bedside, the parents decline circumcision. She denies chest pain, shortness of breathing, fevers, or chills overnight. She denies pain or swelling in the legs. restrictions are reviewed with the patient including pelvic rest for 6 weeks. The patient is encouraged to call the office if she experiences any heavy bleeding, foul-smelling discharge, breast complaints, or any if she has any other concerns. She plans to use OTC Motrin and Tylenol. She will be discharged home with PO ferrous sulfate and stool softneres. She will follow up in the office with in 6 weeks for exam. All questions are answered. Assessment: 33 year old now PPD#1 s/p normal vaginal delivery after mIOL for preE w/o SF Patient Condition at Discharge: Good Plan - Discharge Summary New Discharge Prescriptions: New Ferrous Sulfate [Iron (65 MG Elemental)] 325 mg PO DAILY #30 tab polyethylene glycoL 3350 [Miralax] 17 gm PO DAILY PRN #527 gm PRN Reason: Constipation No Action Vit No.180/Iron/Folic [ Plus Vitamin-Mineral] 1 tab PO HS Discharge Medication List Vit No.180/Iron/Folic [ Plus Vitamin-Mineral] 1 tab PO HS 04/19/19 [History] Ferrous Sulfate [Iron (65 MG Elemental)] 325 mg PO DAILY #30 tab 12/11/23 [Rx] polyethylene glycoL 3350 [Miralax] 17 gm PO DAILY PRN #527 gm 12/11/23 [Rx] Follow up Appointment(s)/Referral(s): Daysi Cruz MD [STAFF PHYSICIAN] - 01/21/24 10:15 am Activity/Diet/Wound Care/Special Instructions: Instructions 1. Do not begin any exercise program for 3 weeks. 2. Do not resume sexual relations for 6 weeks or longer if uncomfortable. 3. You may take tub baths or showers at any time. 4. You may use tampons if desired after 6 weeks. 5. Keep any areas repaired with stitches clean and dry. 6. If you are not nursing, wear a good fitting, supportive bra during the day and limit fluid intake for at least 1 week to prevent breast engorgement. 7. Call the office, , within the next week to make appointment for your 6 week checkup if it has not already been made. 8. Report any of the following occurrences to the doctor promptly: a. Heavy, excessive bleeding b. Chills, fever c. Burning or frequency of urination d. Pain or redness and breasts if nursing e. Increasing pain or swelling of vulva (stitches). In addition to the above instructions, the following additional should be followed: 1. No heavy lifting or straining (exercising) until after 6 week checkup. 2. Keep abdominal incision clean and dry: You may wear a dressing if more comfortable. 3. Make office appointment for 2 weeks after delivery date. Discharge Disposition: HOME SELF-CARE
[2023-12-11] MEDS: FERROUS SULFATE 325 MG TAB PO SCH (13:27)
[2023-12-11 17:18] VITALS: BP 122/73; PULSE 71; TEMP 98.2
== END 2023-12-11 19:13 | disposition home or self-care (01) | DRG 560 ==
LOC: FBPOP 16:39 → 4FBP 18:04
PROVIDERS: ADMIT Obstetrics & Gynecology; ATTEND Obstetrics & Gynecology
PROC: 10E0XZZ Delivery of Products of Conception, External Approach (ICD-10-PCS; principal; 2023-12-10)
PROC: 10907ZC Drainage of Amniotic Fluid, Therapeutic from Products of Conception, Via Natural or Artificial Opening (ICD-10-PCS; 2023-12-10)
PROC: 3E033VJ Introduction of Other Hormone into Peripheral Vein, Percutaneous Approach (ICD-10-PCS; 2023-12-10)
DX: O14.04 Mild to moderate pre-eclampsia, complicating childbirth (principal); Z37.0 Single live birth; Z3A.38 38 weeks gestation of pregnancy
CPT/HCPCS: 36415; 59025; 81003; 82565; 82570; 83615; 84156; 84450; 84460; 84520; 84550; 85025; 86850; 86900; 86901